=== PATIENT | male | born 1970 | race American Indian/Alaskan Native ===

== ENCOUNTER 2021-06-17 08:35 | Emergency (ER) | payer OTHER ==
[2021-06-17] MEDS ORDERED: IPRATROPIUM/ALBUTEROL SULFATE 3 ML AMPUL.NEB IH ONE (10:07)
--- NOTE | 2021-06-17 10:07 | Emergency Department Report ---
ED Shortness of Breath HPI - General Chief Complaint: Dyspnea/Respdistress Stated Complaint: SD Time Seen by Provider: 06/17/21 10:04 Source: patient Mode of arrival: Ambulatory Limitations: No Limitations - History of Present Illness Initial Comments: Patient presents secondary to shortness of breath. He is actually felt short of breath for several weeks or longer. He states that he had Covid several months ago. He initially was short of breath with COVID. He states that the COVID infection seems to have abated, but he has never really regained his normal respiratory status. Over the last weeks, the shortness of breath is progressively worsened. He reports exertional dyspnea. He has orthopnea. He sometimes has to sit up on the side of the bed to catch his breath. He states that he is also been traveling. He drove to [place]. That seemed to exacerbate things. He has a chronic and dry cough. He states he does not know if that is Covid related or from something else. Regardless, he is here for evaluation and treatment. He did notice some swelling in both feet. He states that the actually pointed it out to him. He has no chest pain. He does not feel dizzy or lightheaded. There has been no fever. He has had no hemoptysis. - Related Data Previous Rx's Medication Instructions Recorded Last Taken Type Furosemide [Lasix] 20 mg PO QDAY #7 tablet 06/17/21 Unknown Rx Potassium Chloride [K-Dur] 10 meq PO BID #14 tab 06/17/21 Unknown Rx Allergies Allergy/AdvReac Type Severity Reaction Status Date / Time No Known Allergies Allergy Unverified 06/17/21 08:54 ED Review of Systems ROS: Stated complaint: SD Other details as noted in HPI Comment: All other systems reviewed and negative Constitutional: denies: fever Eyes: denies: vision change ENT: denies: throat pain Respiratory: see HPI Cardiovascular: as per HPI Endocrine: denies: unexplained weight loss Gastrointestinal: denies: abdominal pain Genitourinary: denies: dysuria Musculoskeletal: denies: back pain Skin: denies: rash Neurological: denies: headache Hematological/Lymphatic: denies: easy bruising ED Past Medical Hx - Past Medical History Additional medical history: COVID infection - Family History Family history: no significant - Medications Home Medications: Home Medications Medication Instructions Recorded Confirmed Last Taken Type Furosemide [Lasix] 20 mg PO QDAY #7 tablet 06/17/21 Unknown Rx Potassium Chloride [K-Dur] 10 meq PO BID #14 tab 06/17/21 Unknown Rx ED Physical Exam - General Limitations: No Limitations, Other (Pulse ox noted and hypoxic. This improves with deep breath.) General appearance: alert, in no apparent distress, obese (Morbid) - Head Head exam: Present: atraumatic, normocephalic - Eye Eye exam: Present: normal appearance, PERRL, EOMI. Absent: scleral icterus - ENT ENT exam: Present: normal orophraynx, normal external ear exam - Neck Neck exam: Present: normal inspection. Absent: meningismus - Respiratory Respiratory exam: Present: respiratory distress (Mild), decreased breath sounds (Bilateral). Absent: wheezes - Cardiovascular Cardiovascular Exam: Present: regular rate, normal rhythm. Absent: JVD - GI/Abdominal GI/Abdominal exam: Present: soft, other (Obese). Absent: distended, tenderness - Extremities Exam Extremities exam: Present: normal capillary refill, pedal edema (1+). Absent: calf tenderness - Back Exam Back exam: Absent: CVA tenderness (R), CVA tenderness (L) - Neurological Exam Neurological exam: Present: alert, oriented X3, CN II-XII intact, normal gait. Absent: motor sensory deficit - Psychiatric Psychiatric exam: Present: normal affect, normal mood - Skin Skin exam: Present: warm, dry ED Course Vital Signs 06/17/21 06/17/21 08:59 12:40 Temperature 97.7 F Pulse Rate 67 Pulse Rate [ 65 Bilateral Throughout] Respiratory 22 Rate Respiratory 14 Rate [Bilateral Throughout] Blood Pressure 143/115 O2 Sat by Pulse 95 Oximetry - Reevaluation(s) Reevaluation #1: 06/17/21 10:[address] angiogram was ordered. Patient has multiple risk factors for pulmonary embolism including recent travel, obesity, and Covid infection. Old records noted. Reevaluation #2: 06/17/21 11:24 Labs have been noted. CT angiogram is currently pending. Diuresis can be initiated. Reevaluation #3: 06/17/21 13:22 CT was noted and the patient was discharged. ED Medical Decision Making - Lab Data Result diagrams: 06/17/21 10:00 06/17/21 10:00 Rhythm strip: Normal sinus rhythm without ectopy per monitor observe 10 seconds. - Radiology Data Radiology results: report reviewed - Medical Decision Making Patient presented with dyspnea and was found to have evidence of pulmonary edema. There was no evidence of STEMI or NSTEMI. Patient did not have evidence of pneumonia or pulmonary embolism. He actually had had symptoms from a prolonged standpoint. He actually relates symptoms to several months ago when he would diagnosed with coronavirus. Whether this is related to that and just a prolonged course or a new etiology is somewhat unclear. Regardless, there is no hypoxia. He does not appear to have ACS or cardiac damage. There is no pulmonary embolism. He does not have a loculated pleural effusion or pneumonia. There is no pneumothorax. Patient was treated symptomatically and referred for cardiology follow-up and evaluation. Critical Care Time: No Critical care attestation.: If time is entered above; I have spent that time in minutes in the direct care of this critically ill patient, excluding procedure time. ED Disposition Clinical Impression: Shortness of breath Pulmonary edema Qualifiers: Chronicity: acute Qualified Code(s): J81.0 - Acute pulmonary edema Disposition: HOME / SELF CARE / HOMELESS Is pt being admited?: No Condition: Stable Instructions: Pulmonary Edema (ED), Shortness of Breath, Adult, [id number], Pulmonary Edema, [id number] Additional Instructions: Elevate the feet. Do not eat salt. Do not cook with salt. Take the medication as prescribed. Follow-up with your family doctor and matrix worker or the referral doctors. Return for any problems or concerns. Prescriptions: Potassium Chloride [K-Dur] 10 meq PO BID #14 tab Furosemide [Lasix] 20 mg PO QDAY #7 tablet Referrals: IRMA DICK MD [Primary Care Provider] - 3-5 Days IVETTE JOHNSON MD [Staff Physician] - 3-5 Days
[2021-06-17 10:47] LABS: Basophils # (Auto) 0.1 K/mm3 (0.0-0.1); Basophils % (Auto) 1.1 % (0.0-1.8); Eosinophils # (Auto) 0.2 K/mm3 (0.0-0.4); Eosinophils % (Auto) 3.2 % (0.0-4.3); Hematocrit 44.9 % (35.5-45.6); Hemoglobin 14.9 gm/dl (11.8-15.2); Lymphocytes # (Auto) 1.6 K/mm3 (1.2-5.4); Lymphocytes % (Auto) 26.6 % (13.4-35.0); Mean Corpuscular HGB Conc 33 % (32-34); Mean Corpuscular Volume 99 fl (84-94); Monocytes # (Auto) 0.5 K/mm3 (0.0-0.8); Monocytes % (Auto) 8.6 % (0.0-7.3); Platelet Count 225 K/mm3 (140-440); Red Blood Count 4.53 M/mm3 (3.65-5.03); Red Cell Distribution Width 15.1 % (13.2-15.2)
[2021-06-17 11:11] LABS: BUN/Creatinine Ratio 12; Blood Urea Nitrogen 16 mg/dL (9-20); Calcium 9.1 mg/dL (8.4-10.2); Hemolysis Index 28
[2021-06-17] MEDS ORDERED: FUROSEMIDE 40 MG/4 ML INJ IV ONE (11:24)
--- NOTE | 2021-06-17 13:11 | Cat Scan Report ---
CTA CHEST WITH IV CONTRAST, 06/17/2021 INDICATION: Shortness of breath. TECHNIQUE: Axial CT images were obtained through the chest after injection of IV contrast. Coronal oblique 2-D reconstruction images were produced. 3 plane MIP reconstruction images were produced at an [employer] workstation. All CTs at this facility utilize dose reduction techniques including automated expos ure control, iterative reconstruction and weight based dosing when appropriate to reduce patient radi ation dose to as low as reasonable achievable. COMPARISON: No prior studies are available for comparison. FINDINGS: Today's evaluation is technically limited due to suboptimal timing of contrast bolus and patient body habitus. No filling defects are visualized within the central or segmental pulmonary arteries. There is moderate cardiomegaly. The thoracic aorta is normal in caliber. LUNGS: The lungs are clear of focal airspace disease or pleural effusion. UPPER ABDOMEN: Limited imaging of the upper abdomen demonstrates no evidence of acute abnormality. Th ere is a 1.7 cm left renal cyst. BONES AND SOFT TISSUES: No focal acute abnormality. IMPRESSION: 1. Technically limited study without evidence of central or segmental pulmonary embolism. 2. Moderate cardiomegaly. Signer Name: Di Mcdaniel MD Signed: 06/17/2021 1:06 PM Workstation Name: [id number]
[2021-06-17 13:36] VITALS: BP 129/104
== END 2021-06-17 13:36 | disposition home or self-care (01) ==
LOC: ED 08:35
DX: R06.02 Shortness of breath (principal); J81.1 Chronic pulmonary edema
CPT/HCPCS: 36415; 71275; 80048; 83880; 84484; 85025; 94640; 96374; 99284; J1940; Q9967; 94644